=== PATIENT | female | born 1985 ===

== ENCOUNTER 2019-02-21 16:28 | Emergency (ER) | payer MEDICARE, MEDICAID ==
[~2019-02-21] VITALS: Ht 165.1 cm; Wt 78.0 kg
[~2019-02-21 16:28] MED LIST: lidocaine 1%/epinephrine 1:100,000 injection 50ml vial ONE
--- NOTE | 2019-02-21 18:56 | NUR ---
This patient is sitting up on hallway bed. She is alert and oriented X4. Patient complains of posterior cervical pain. Pain began on Wednesday, it also radiates to her left parital region. She describes it as a numb, heavy sensation. Tingling is present to her right forarm and number 1 finger right hand. PERRL, No facial droop, tongue is straight out, equal risk control manager are present. We are awaiting a provider.
[2019-02-21] MEDS ORDERED: ketorolac trometh inj. 60 MG/2 ML VIAL IM ONE (20:05)
[2019-02-21] MEDS ORDERED: proCHLORperazine 10 MG/2 ml inj IM ONE (20:05)
[2019-02-21] MEDS ORDERED: acetaminophen 325mg tablet PO ONE (20:05)
--- NOTE | 2019-02-21 21:41 | NUR ---
Patient states pain a 5 now. She states she is very comfortible. Discharge to home with flu inst. No nausea at time of discharge. Patient exhibits understanding of discharge instructions
[2019-02-21 21:43] VITALS: BP 116/72
== END 2019-02-21 21:46 | disposition home or self-care (01) ==
LOC: ER 16:30
DX: R51 Headache (principal); Z88.5 Allergy status to narcotic agent
CPT/HCPCS: 20552; 96372; 99284; J0780; J1885; 99283